=== PATIENT | male | born 1975 | race Caucasian/White ===

== ENCOUNTER 2020-06-05 08:33 | Outpatient (REF) | payer OTHER, SELFPAY ==
[2020-06-05 19:47] LABS: Calculated LDL 105 mg/dL (<100); Cholesterol 164 mg/dL (<200); Glucose 108 mg/dL (74-106); HDL Cholesterol 48 mg/dL (40-60); Triglyceride 59 mg/dL (<150)
== END 2020-06-05 08:53 ==
LOC: NCHCN 08:33
PROVIDERS: PCP Nurse Practitioner Family; Visit Provider Nurse Practitioner Family
DX: Z00.00 Encounter for general adult medical examination without abnormal findings (principal)
CPT/HCPCS: 80061; 82947

== ENCOUNTER 2022-03-21 21:55 | Outpatient (REF) | payer OTHER, SELFPAY ==
[2022-03-21 19:13] LABS: ALT 32 U/L (16-63); AST 21 U/L (15-37); Albumin 4.3 g/dL (3.4-5.0); Alkaline Phosphatase 66 U/L (46-116); Anion Gap 9.6 mmol/L (3-11); BUN 14 mg/dL (7-18); Bilirubin, Total 0.5 mg/dL (0.2-1.0); CO2 27.4 mmol/L (21.0-32.0); CREATININE 1.3 mg/dL (0.70-1.30); Chloride 104 mmol/L (98-107); Estimated GFR 58.92 (mL/min/1.73m2); Glucose 118 mg/dL (74-106); Sodium 141 mmol/L (136-145); Total Protein 7.6 g/dL (6.4-8.2)
[2022-03-21 19:34] LABS: Hemoglobin A1C 5.5 % (<5.7)
== END 2022-03-21 21:56 | disposition home or self-care (01) ==
LOC: NCHCN 21:55
PROVIDERS: PCP Nurse Practitioner Family; Visit Provider Nurse Practitioner Family
DX: Z00.00 Encounter for general adult medical examination without abnormal findings (principal); R73.9 Hyperglycemia, unspecified
CPT/HCPCS: 80053; 83036

== ENCOUNTER 2023-03-17 17:46 | Outpatient (REF) | payer OTHER, SELFPAY ==
[2023-03-17 20:43] LABS: ALT 41 U/L (16-63); AST 24 U/L (15-37); Albumin 4.1 g/dL (3.4-5.0); Alkaline Phosphatase 68 U/L (46-116); Anion Gap 7.4 mmol/L (3-11); BUN 13 mg/dL (7-18); Bilirubin, Total 0.3 mg/dL (0.2-1.0); CO2 28.6 mmol/L (21.0-32.0); CREATININE 1.3 mg/dL (0.70-1.30); Calcium 9.7 mg/dL (8.5-10.1); Chloride 108 mmol/L (98-107); Estimated GFR 67.34 (mL/min/1.73m2); Glucose 122 mg/dL (74-106); Sodium 144 mmol/L (136-145); Total Protein 7.9 g/dL (6.4-8.2)
[2023-03-19 10:37] LABS: HIV-1/2 Ag & Ab Screen Negative (Negative)
[2023-03-19 10:38] LABS: Hepatitis C Ab w Rflx HCV PCR Negative (Negative)
== END 2023-03-17 17:47 | disposition home or self-care (01) ==
LOC: NCHCN 17:46
PROVIDERS: PCP Nurse Practitioner Family; Visit Provider Nurse Practitioner Family
DX: Z00.00 Encounter for general adult medical examination without abnormal findings (principal); Z11.4 Encounter for screening for human immunodeficiency virus [HIV]; Z11.59 Encounter for screening for other viral diseases; Z13.228 Encounter for screening for other metabolic disorders
CPT/HCPCS: 80053; 86803; 87389; 84443

== ENCOUNTER 2024-02-16 15:55 | Outpatient (REF) | payer OTHER, SELFPAY ==
[2024-02-16 18:51] LABS: Anion Gap 6.2 mmol/L (3-11); BUN 16 mg/dL (7-18); CO2 28.8 mmol/L (21.0-32.0); CREATININE 1.6 mg/dL (0.70-1.30); Calcium 9.8 mg/dL (8.5-10.1); Chloride 107 mmol/L (98-107); Estimated GFR 52.17 (mL/min/1.73m2); Glucose 128 mg/dL (74-106); Potassium 4.8 mmol/L (3.5-5.1); Sodium 142 mmol/L (136-145)
[2024-02-16 18:56] LABS: Hemoglobin A1C 5.6 % (<5.7)
== END 2024-02-16 15:56 | disposition home or self-care (01) ==
LOC: NCHCN 15:55
PROVIDERS: PCP Nurse Practitioner Family; Visit Provider Nurse Practitioner Family
DX: Z00.00 Encounter for general adult medical examination without abnormal findings (principal)
CPT/HCPCS: 80048; 83036

== ENCOUNTER 2024-02-24 14:33 | Outpatient (REF) | payer OTHER, SELFPAY ==
[2024-02-24 19:33] LABS: BUN 13 mg/dL (7-18); CREATININE 1.3 mg/dL (0.70-1.30); Chloride 102 mmol/L (98-107); Estimated GFR 66.93 (mL/min/1.73m2); Glucose 102 mg/dL (74-106); Potassium 3.8 mmol/L (3.5-5.1); Sodium 140 mmol/L (136-145)
[2024-02-24 20:05] LABS: COMMENT (LAB VIEW ONLY) < 13.00 mg/dL
== END 2024-02-24 14:34 | disposition home or self-care (01) ==
LOC: NCHCN 14:33
PROVIDERS: PCP Nurse Practitioner Family; Visit Provider Physician Assistant
DX: R79.89 Other specified abnormal findings of blood chemistry (principal)
CPT/HCPCS: 80048; 82043; 82570